=== PATIENT | female | born 1995 | race African-American/Black ===

== ENCOUNTER 2017-10-17 21:45 | Inpatient (IN) | payer OTHER ==
[2017-10-17] MEDS ORDERED: Sodium Chloride 0.9% 10 ML ONE ×2 (22:39→22:42)
[2017-10-17] MEDS ORDERED: Ibuprofen 800 MG TAB PO PRN (22:41)
[2017-10-17] MEDS ORDERED: Lidocaine 1% (PF) 30 ML VIAL SC PRN (22:41)
[2017-10-17] MEDS ORDERED: Promethazine HCl 25 MG/ML VIAL IM PRN (22:41)
[2017-10-17] MEDS ORDERED: HYDROcodone/Acetaminophen 5/325 mg Tablet PO PRN ×2 (22:41)
[2017-10-17] MEDS ORDERED: LR / Pitocin 40 units/1000 ml 1,000 ML IV PRN (22:41)
[2017-10-17] MEDS ORDERED: Ondansetron HCl/PF 4 MG/2 ML Vial IVP PRN (22:41)
[2017-10-17] MEDS ORDERED: Lactated Ringer's 1,000 ML IV PRN (22:41)
[2017-10-17 22:51] VITALS: BMI 29.7
[2017-10-17 23:12] LABS: Hematocrit 33.2 % (36.0-47.0); Mean Platelet Volume 8.1 fL (7.4-10.4); Red Blood Cell (RBC) Count 3.68 mill/uL (4.20-5.40); White Blood Cell (WBC) Count 9.2 thou/uL (4.8-10.8)
--- NOTE | 2017-10-17 23:29 | PDOC.LDHP ---
Labor and Delivery H&P Chief complaint: contractions HPI: CTX since 4 pm with rupture. Current gestational age (weeks): 39 Due date: 10/21/17 Dating criteria: first trimester ultrasound Grav: 2 Para: 1 OB History Details: premature delivery at 36weeks Current complications: other (anemia) Abnormal US findings: No Current medications: pre-keny vitamins, iron Allergies/Adverse Reactions: Allergies Allergy/AdvReac Type Severity Reaction Status Date / Time No Known Drug Allergies Allergy Verified 10/17/17 22:52 Social history: alcohol use (pre ) - Physical Exam Vital signs reviewed and normal: yes General: breathing through contractions Heart: RRR Lungs: CTAB Abdomen: gravid Extremeties: trace edema - Vaginal Exam cm dilated: 7 Effacement: 100% Station: 1+ - OB Labs Blood type: O RH: positive Antibody Screen: negative HIV: negative RPR: negative HEPSAg: negative 1 hour GCT: negative 3 hour GTT: positive Urine drug screen: not done Rubella: immune - Assessment L&D Assessment: term rupture in membranes (in labor) - Plan Plan: admit to L&D (Low intervention protocols)
--- NOTE | 2017-10-18 00:39 | PDOC.OPDEL ---
OB Operative/Delivery Note Delivery Dr/Surgeon: Alfreda Jeffery CNM Pre-Delivery Diagnosis: active labor Procedure/Post Delivery Dx: spontaneous vaginal delivery Weeks gestation: 39 Anesthesia: none - Findings A Sex: female Weight: 7 lb 2 oz - 1 min: 8 - 5 min: 9 - Additional Findings/Plan Placenta delivered: spontaneous Repaired Obstetrical Laceration: none (Right labial - hemostatic, not repaired.) Estimated blood loss: 200 Post delivery plan: routine recovery
[2017-10-18] MEDS ORDERED: Bisacodyl 10 MG SUPP PR PRN (01:25)
[2017-10-18] MEDS ORDERED: LR / Pitocin 40 units/1000 ml 1,000 ML IV SCH (01:25)
[2017-10-18] MEDS ORDERED: Milk Of Magnesia 30 ML UDCUP PO PRN (01:25)
[2017-10-18] MEDS ORDERED: Adacel (T-DAP) 0.5 ML VIAL IM ONE (01:25)
[2017-10-18] MEDS ORDERED: Lanolin Ointment 7 GM TUBE TOP PRN (01:25)
[2017-10-18] MEDS ORDERED: HYDROcodone/Acetaminophen 5/325 mg Tablet PO PRN ×2 (01:25)
[2017-10-18] MEDS ORDERED: Misoprostol 200 MCG TAB VAG SCH (01:25)
[2017-10-18] MEDS ORDERED: Ondansetron HCl/PF 4 MG/2 ML Vial IVP PRN (01:25)
[2017-10-18] MEDS ORDERED: Benzocaine/Menthol 20-0.5% 60 ML CAN TOP PRN (01:25)
[2017-10-18 05:55] LABS: Hematocrit 30.7 % (36.0-47.0); Mean Platelet Volume 7.8 fL (7.4-10.4); Red Blood Cell (RBC) Count 3.43 mill/uL (4.20-5.40); White Blood Cell (WBC) Count 12.8 thou/uL (4.8-10.8)
[2017-10-18] MEDS: Ibuprofen 800 MG TAB PO SCH ×3 (06:10→21:19)
[2017-10-18] MEDS: Ferrous Sulfate 325 MG TAB PO SCH ×2 (09:44→17:38)
[2017-10-18] MEDS: Prenatal Vitamin 1 TAB PO SCH (09:45)
[2017-10-18] MEDS: Docusate (Surfak) 240 MG CAP PO SCH ×2 (09:45→21:19)
[2017-10-19] MEDS: Ibuprofen 800 MG TAB PO SCH ×2 (06:08→14:28)
[2017-10-19 07:48] VITALS: BP 119/79; TEMP 97.9
[2017-10-19] MEDS: Ferrous Sulfate 325 MG TAB PO SCH ×2 (10:18→16:56)
[2017-10-19] MEDS: Docusate (Surfak) 240 MG CAP PO SCH (10:18)
[2017-10-19] MEDS: Prenatal Vitamin 1 TAB PO SCH (10:18)
--- NOTE | 2017-10-19 12:02 | PDOC.PP ---
Post Progress Note Post Day #: 1 Subjective: doing well. struggling with feeding the baby because she is sleepy. would like to stay to see LC PO intake tolerated: yes Flatus: yes Ambulation: yes Vital Signs (12 hours) Temp Pulse Resp BP 10/19/17 08:00 97.9 F 61 18 10/19/17 07:47 97.9 F 61 18 119/79 Weight Weight 173 lb - Physical Examination General: NAD Cardiovascular: no m/r/g, RRR Respiratory: clear to auscultation bilaterally Abdominal: + bowel sounds Fundus firm & at: u-1 Extremities: negative homans (B) Psychiatric: A&Ox3, normal affect Result Diagrams: 10/18/17 05:13 Additional Labs: Post Labs Hep Bs Antigen Non-Reactive S/CO (NonReactive) 10/17/17 22:54 (1) (spontaneous vaginal delivery) Code(s): O80 - ENCOUNTER FOR FULL-TERM UNCOMPLICATED DELIVERY Status: Acute - Assessment/Plan A: PPD #2 with NML exam. P: Discharge home today following visit with IBCLC
== END 2017-10-19 17:30 | disposition home or self-care (01) | DRG 775 ==
LOC: L&D/OP 21:45 → L&D-LIB 22:36 → 3SW 10-18 02:44
PROVIDERS: ADMIT Obstetrics & Gynecology; ATTEND Obstetrics & Gynecology
PROC: 10E0XZZ Delivery of Products of Conception, External Approach (ICD-10-PCS; principal; 2017-10-18)
DX: O70.0 First degree perineal laceration during delivery (principal); Z37.0 Single live birth; Z3A.39 39 weeks gestation of pregnancy
CPT/HCPCS: 36415; 85027; 86780; 87340; A4216

== ENCOUNTER 2018-02-07 07:26 | Outpatient (CLI) | payer OTHER | END 2018-02-07 07:27 | disposition home or self-care (01) | LOC: BICULT 07:26 | PROVIDERS: ATTEND Advanced Practice Midwife | DX: N63.10 Unspecified lump in the right breast, unspecified quadrant (principal) | CPT/HCPCS: 77066; G0279 ==

== ENCOUNTER 2018-04-09 16:54 | Emergency (ER) | payer OTHER, SELFPAY ==
--- NOTE | 2018-04-09 17:34 | RAD ---
LEFT FOOT: 04/09/18 Three views. HISTORY: Fall with injury to left foot. Tarsals appear intact. Metatarsals and phalanges appear intact. IMPRESSION: No acute fracture identified. POS: IRASEMA
[2018-04-09] MEDS ORDERED: Ibuprofen 200 MG TAB ONE (17:46)
== END 2018-04-09 18:24 | disposition home or self-care (01) ==
LOC: ERS 16:54
DX: S90.32XA Contusion of left foot, initial encounter (principal); W18.30XA Fall on same level, unspecified, initial encounter

== ENCOUNTER 2019-01-09 12:53 | Emergency (ER) | payer MEDICAID, SELFPAY ==
[2019-01-09 14:34] LABS: Bilirubin Negative (Negative); Blood, Urine Moderate (Negative); Clarity CLEAR (Clear); Glucose, Urine (Dipstick) Negative (Negative); Leukocyte Negative (Negative); Nitrite Negative (Negative); Protein, Urine (Dipstick) Negative (Neg-Trace); Specific Gravity, Urine 1.006 (1.002-1.036); Urobilinogen 0.2 mg/dL (0.2-1.0)
[2019-01-09 14:36] LABS: Bacteria/HPF None Seen HPF (None Seen); Hyaline Casts/LPF 0-3 HYALINE CAST LPF (0-3 Hyaline); RBC/HPF 0-3 HPF (0-3); Squamous Epithelial 0-3 HPF (0-3); WBC/HPF None Seen HPF (0-3)
[2019-01-09 14:38] LABS: #Basophils 0.1 thou/uL (0.0-0.2); #Eosinphils 0.1 thou/uL (0.0-0.7); #Lymphocytes 1.6 thou/uL (1.20-3.40); #Monocytes 0.5 thou/uL (0.11-0.59); #Neutrophils 5.8 thou/uL (1.40-6.50); %Eosinophils 0.8 % (0.0-10.0); %Lymphocytes 20.4 % (21.0-51.0); %Monocytes 5.6 % (0.0-10.0); %Neutrophils 72.3 % (42.0-75.0); Hemoglobin 12.7 g/dL (12.0-16.0); Mean Corpuscular HGB CONC 31.9 g/dL (32.0-36.0); Mean Corpuscular Hemoglobin 30.1 pg (27.0-31.0); Mean Corpuscular Volume 94.1 fL (78.0-98.0); Mean Platelet Volume 8.5 fL (7.4-10.4); Platelet Count 200 thou/uL (130-400); RBC Distribution Width 13.2 % (11.5-14.5); Red Blood Cell (RBC) Count 4.22 mill/uL (4.20-5.40)
[2019-01-09 14:42] LABS: BHCG - Serum POSITIVE (NEGATIVE); Pregs Control Background? CLEAR/WHITE (CLR/WHITE); Pregs Control Bar Appear? YES (CONTROL BAR)
[2019-01-09 14:54] LABS: ALT (SGPT) 9 U/L (8-55); AST (SGOT) 19 U/L (5-34); Albumin 3.9 g/dL (3.5-5.0); Alkaline Phosphatase 52 U/L (40-150); Anion Gap 14 mmol/L (10-20); BUN (Urea Nitrogen) 6 mg/dL (7.0-18.7); Bilirubin, Total 0.2 mg/dL (0.2-1.2); Calc. Creatinine Clearance 0 mL/min (70-130); Carbon Dioxide 18 mmol/L (22-29); Chloride 108 mmol/L (98-107); Estimated GFR-MDRD Greater than 90; Globulin 3.2 g/dL (2.4-3.5); Glucose 96 mg/dL (70-105); Potassium 4.4 mmol/L (3.5-5.1); Protein, Total 7.1 g/dL (6.0-8.3); Sodium 136 mmol/L (136-145)
--- NOTE | 2019-01-09 16:48 | ULT ---
ULTRASOUND PELVIC WITH DOPPLER: History: Vaginal bleeding and cramping. Comparison: None. FINDINGS: Real-time grayscale and color spectral analysis of the pelvis was performed in a transvaginal and tra nsabdominal approach. The uterus measures 9.3 x 4.5 x 5.3 cm. Right ovary measures 2.2 x 2.1 x 2.3 cm and left ovary measures 2.3 x 1.0 x 2.4 cm. Microvascular flow to both ovaries. No free fluid in the pelvis. There is complex fluid within the endocervical canal. IMPRESSION: Given the patient's low HCG level of 300 and complex debris in the cervical canal, this is concerning for in progress. No normal viable intrauterine is appreciated. Follow up HCG and ultrasound recommended. POS: IRASEMA
== END 2019-01-09 16:59 | disposition home or self-care (01) ==
LOC: ERS 12:53
DX: O03.9 Complete or unspecified spontaneous abortion without complication (principal)
CPT/HCPCS: 36415; 76856; 80053; 81003; 81015; 84702; 84703; 85025; 86900; 86901; 88305; 93976

== ENCOUNTER 2019-01-12 19:32 | Emergency (ER) | payer OTHER, SELFPAY ==
[2019-01-12 21:28] LABS: #Basophils 0.1 thou/uL (0.0-0.2); #Eosinphils 0.1 thou/uL (0.0-0.7); #Lymphocytes 1.9 thou/uL (1.20-3.40); #Monocytes 0.5 thou/uL (0.11-0.59); #Neutrophils 3.9 thou/uL (1.40-6.50); %Basophils 0.8 % (0.0-1.0); %Eosinophils 1.2 % (0.0-10.0); %Lymphocytes 29.4 % (21.0-51.0); %Monocytes 7.9 % (0.0-10.0); %Neutrophils 60.8 % (42.0-75.0); Hemoglobin 11.4 g/dL (12.0-16.0); Mean Corpuscular HGB CONC 33.1 g/dL (32.0-36.0); Mean Corpuscular Hemoglobin 30.7 pg (27.0-31.0); Mean Corpuscular Volume 92.6 fL (78.0-98.0); Mean Platelet Volume 8.4 fL (7.4-10.4); Platelet Count 203 thou/uL (130-400); RBC Distribution Width 12.7 % (11.5-14.5); White Blood Cell (WBC) Count 6.5 thou/uL (4.8-10.8)
== END 2019-01-12 22:58 | disposition home or self-care (01) ==
LOC: ERS 19:32
DX: O03.9 Complete or unspecified spontaneous abortion without complication (principal)
CPT/HCPCS: 36415; 84702; 85025; 86850; 86900; 86901; 99284

== ENCOUNTER 2020-06-02 12:25 | Emergency (ER) | payer MEDICAID ==
[2020-06-02 14:10] LABS: #Lymphocytes 0.5 thou/uL (1.20-3.40); #Monocytes 0.7 thou/uL (0.11-0.59); %Eosinophils 0.2 % (0.0-10.0); %Lymphocytes 3.9 % (21.0-51.0); %Monocytes 5.4 % (0.0-10.0); %Neutrophils 90.5 % (42.0-75.0); Hemoglobin 11.1 g/dL (12.0-16.0); Mean Corpuscular HGB CONC 33.1 g/dL (32.0-36.0); Mean Corpuscular Hemoglobin 30.2 pg (27.0-31.0); Mean Corpuscular Volume 91.2 fL (78.0-98.0); Mean Platelet Volume 8.6 fL (7.4-10.4); Platelet Count 164 thou/uL (130-400); RBC Distribution Width 12.5 % (11.5-14.5); Red Blood Cell (RBC) Count 3.69 mill/uL (4.20-5.40); White Blood Cell (WBC) Count 13.2 thou/uL (4.8-10.8)
[2020-06-02 14:37] LABS: Bacteria/HPF 4+ HPF (None Seen); Bilirubin Negative (Negative); Blood, Urine 1+ (Negative); Clarity Turbid (Clear); Glucose, Urine (Dipstick) Normal (Negative); Ketone, Urine Negative (Negative); Leukocyte 500 Leu/uL (Negative); Nitrite Negative (Negative); Protein, Urine (Dipstick) 50 mg/dL (Neg-Trace); Specific Gravity, Urine 1.013 (1.002-1.036); Squamous Epithelial 0-3 HPF (0-3); Urobilinogen Normal mg/dL (Less than 2); WBC/HPF Greater than 50 HPF (0-3); pH, Urine 6.5 (5.0-9.0)
--- NOTE | 2020-06-02 16:13 | ULT ---
PELVIC ULTRASOUND: History: Right sided pelvic pain. Positive test at home. FINDINGS: Real-time imaging of the pelvis was obtained both transabdominally as well as with an endovaginal pro be. The uterus measures 8.5 cm in length. The endometrium is somewhat thickened, greater than 1 cm. Bilateral small complex cysts are noted with the one on the right measuring 1.4 cm and several on the left, the largest is 2.4 cm. There also appears to be some free fluid adjacent to the left adnexa. Doppler evaluation with spectral analysis demonstrates normal flow to both ovaries. IMPRESSION: 1. Bilateral complex follicles or cysts involving both adnexa. 2. Some free fluid seen adjacent to the left adnexa. 3. No definitive evidence for ectopic or intrauterine . This does not exclude an early pregn francis. POS: ZEE
== END 2020-06-02 14:59 | disposition home or self-care (01) ==
LOC: ERS 12:25
DX: O23.41 Unspecified infection of urinary tract in pregnancy, first trimester (principal); Z3A.00 Weeks of gestation of pregnancy not specified
CPT/HCPCS: 36415; 76856; 81003; 81015; 84702; 85025; 86900; 86901; 87077; 87086; 87186

== ENCOUNTER 2021-02-19 15:38 | Emergency (ER) | payer OTHER | END 2021-02-19 17:18 | disposition home or self-care (01) | LOC: ERS 15:38 | DX: M65.4 Radial styloid tenosynovitis [de Quervain] (principal) | CPT/HCPCS: 99283 ==

== ENCOUNTER 2023-12-09 07:12 | Emergency (ER) | payer OTHER ==
[2023-12-09] MEDS ORDERED: Ibuprofen 800 MG TAB ONE (07:58)
[2023-12-09] MEDS ORDERED: Oxymetazoline HCl 0.05% (30 ML BOT) ONE (08:00)
[2023-12-09 10:51] LABS: SARS-CoV-2 NAA Rapid Test Not Detected (NotDetected)
== END 2023-12-09 08:28 | disposition home or self-care (01) ==
LOC: ERS 07:12
DX: J11.1 Influenza due to unidentified influenza virus with other respiratory manifestations (principal)
CPT/HCPCS: 99283